=== PATIENT | female | born 2000 | race African-American/Black ===

== ENCOUNTER 2020-02-27 11:50 | Emergency (ER) | payer OTHER, SELFPAY ==
[2020-02-27 12:24] VITALS: BP 121/80; PULSE 78; RESP 18; TEMP 36.7; O2SAT 100; BMI 18.0
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
[2020-02-27 12:44] VITALS: BP 121/80; PULSE 78; RESP 18; TEMP 36.7; O2SAT 100
[2020-03-02 15:21] LABS: Neisseria gonorrhoeae, NAA Negative (Negative)
== END 2020-02-27 12:44 | disposition home or self-care (01) ==
PROVIDERS: Emergency Provider Nurse Practitioner Family
DX: Z20.2 Contact with and (suspected) exposure to infections with a predominantly sexual mode of transmission (principal)
CPT/HCPCS: 87491; 87591; 99201

== ENCOUNTER 2020-03-31 13:57 | Emergency (ER) | payer OTHER, SELFPAY ==
[2020-03-31 14:10] VITALS: BP 128/84; PULSE 87; RESP 19; TEMP 36.9; O2SAT 98; BMI 21.6
--- NOTE | 2020-03-31 14:24 | HMH.EDUTC ---
[facility] [place] Clinical Impression: Bronchitis Sinusitis Qualifiers: Sinusitis location: unspecified location Chronicity: unspecified Qualified Code(s): J32.9 - Chronic sinusitis, unspecified Disposition: Home, Self-Care Condition on Discharge: Good Instructions: Sinusitis, Sinus Headache, DI for Sinusitis, DI for Acute Bronchitis, Albuterol, Methylprednisolone, Amoxicillin and Clavulanic Acid Additional Instructions: ? Start antibiotic today. Be sure to complete entire prescription even if feeling better ? Monitor temp. Tylenol every 4 hours as needed and / or ibuprofen every 6 hours as needed ( As long as your primary care physician has told you that it ok to take both. For fever/aches/pains ER if no less than 101 despite Tylenol or Motrin ? Humidifier/vaporizer or hot steamy shower ? Inhaler every 4-6 hours as needed like we discussed. If unsure how to use it, ask pharmacist to demonstrate how. Should help open airways and improve cough, wheezing, and shortness of breath ? Mucinex during the day for your cough and cough suppressant only at night. Be sure to drink lots of water. Insurance may not cover a prescriptions for mucinex. Might be cheaper to get 400mg tablets and take 2 tablet in the morning, mid-day and evening with lots of water. *Start steroid today. Helps with inflammation therefore, cough and wheezing. Follow directions on the package. Reviewed side effects. Patient reports taking them before. Follow up IMMEDIATELY for new or worsening of symptoms OR no noticeable improvement over the next 48-72 hours. 911 immediately for any life threatening symptoms such as chest pain or difficulty breathing Prescriptions: Albuterol Sulfate [Proventil-HFA 90mcg/puff Inh] 1 - 2 puffs IH Q4HP PRN #1 inh PRN Reason: Shortness Of Breath Transmission Status: P[facility] to [facility] Amoxicillin/Potassium Clav [Augmentin 875-125 Tablet] 1 tab PO Q12H 7 Days #14 tab Transmission Status: Pending to [facility] methylPREDNISolone [Medrol 4mg tab] 4 mg PO DIRECTED #21 tab Transmission Status: Pending to [facility] Referrals: PCP,No [Primary Care Provider] - As needed Time of Disposition: 14:30 Medical Decision Making - Saúl Inquiry Pt receiving controlled substance: No Saúl was queried for this patient: No Vital Signs: 03/31/20 14:10 Temperature 98.4 F Temperature Source Oral Pulse Rate [Right Brachial] 87 Respiratory Rate 19 Blood Pressure [Right Arm] 128/84 Blood Pressure Mean [Right Arm] 98 Blood Pressure Source [Right Arm] Automatic Cuff Blood Pressure Position [Right Arm] Sitting 02 Sat by Pulse Oximetry 98 Oxygen Delivery Method Room Air [facility] [place] - General Stated complaint: Cough Time Seen by Provider: 03/31/20 14:24 Mode of Arrival: Ambulatory Source of Information: Patient Limitations: No Limitations Description of Symptoms (Recalled from Triage Doc. by RN): PATIENT C/O COUGH X 2 DAYS HEENT Symptoms (Recalled from RN notes): No Resp Symptoms (Recalled from RN notes): Yes Skin Symptoms (Recalled from RN notes): No MS Symptoms (Recalled from RN notes): No Functional Status (Recalled from RN notes): WNL - History of Present Illness Provider Complaint: Patient states that she is an everyday smoker States that she has been having sinus pain and pressure along with drainage in the back of her throat for over a week and cough that started about 2 days ago State that she has a history of recurrent sinus infections State that she feels like it is trying to move into her chest area State that she is blowing yellowish green mucous from her nose - Related Data Previous Rx's Medication Instructions Recorded Albuterol Sulfate [Proventil-HFA 1 - 2 puffs IH Q4HP PRN #1 inh 03/31/20 90mcg/puff Inh] Amoxicillin/Potassium Clav 1 tab PO Q12H 7 Days #14 tab 03/31/20 [Augmentin 875-125 Tablet] methylPREDNISolone [Medrol 4mg 4 mg PO DIRECTED #21 tab 03/31/20 ta
[2020-03-31 14:33] VITALS: BP 128/84; PULSE 87; RESP 19; TEMP 36.9; O2SAT 98
== END 2020-03-31 14:40 | disposition home or self-care (01) ==
PROVIDERS: Emergency Provider Nurse Practitioner
DX: J20.9 Acute bronchitis, unspecified (principal); J32.9 Chronic sinusitis, unspecified
CPT/HCPCS: 99201

== ENCOUNTER 2020-05-17 18:07 | Emergency (ER) | payer SELFPAY ==
[2020-05-17 18:08] VITALS: BP 127/62; PULSE 93; RESP 20; TEMP 36.9; O2SAT 100; BMI 17.7
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
[2020-05-17 18:43] VITALS: BP 116/73; PULSE 78; RESP 20; TEMP 36.9; O2SAT 99
== END 2020-05-17 18:44 | disposition home or self-care (01) ==
PROVIDERS: Emergency Provider Emergency Medicine
DX: Z04.1 Encounter for examination and observation following transport accident (principal); V89.2XXA Person injured in unspecified motor-vehicle accident, traffic, initial encounter; Y92.488 Other paved roadways as the place of occurrence of the external cause
CPT/HCPCS: 99281

== ENCOUNTER → 2020-07-09 10:37 | Outpatient (CLI) | payer OTHER, SELFPAY | PROVIDERS: Visit Provider Obstetrics & Gynecology | DX: Z34.90 Encounter for supervision of normal pregnancy, unspecified, unspecified trimester (principal) | CPT/HCPCS: 36415; 84702 ==

== ENCOUNTER → 2020-07-12 10:43 | Outpatient (CLI) | payer OTHER, SELFPAY | PROVIDERS: Visit Provider Obstetrics & Gynecology | DX: Z34.90 Encounter for supervision of normal pregnancy, unspecified, unspecified trimester (principal) | CPT/HCPCS: 36415; 84702 ==

== ENCOUNTER → 2020-07-15 14:28 | Outpatient (CLI) | payer OTHER, SELFPAY ==
--- NOTE | 2020-07-15 14:28 | US_ITS ---
PROCEDURE: US OB <= 14 WEEKS FETUS CLINICAL INDICATION: pregn COMPARISON: No exams were available for comparison FINDINGS: An intrauterine gestational sac is present with a pole with a crown-rump length of 2.31cm correlating to gestational age of 9weeks 1day. heart tones are present with an FHR of 174bpm. Yolk sac is noted. Is noted. Focal anechoic lesion is noted in the left ovary measuring 1.4 centimeters. IMPRESSION: Single viable intrauterine gestation with gestational age of 9 weeks and 1 day Estimated due date by Ultrasound is 02/16/2021 Dictated by: Christine Lindsay 07/15/2020 17:34 Christine Lindsay in OV 07/15/2020 17:34
== END ==
PROVIDERS: Visit Provider Obstetrics & Gynecology
DX: Z34.90 Encounter for supervision of normal pregnancy, unspecified, unspecified trimester (principal)
CPT/HCPCS: 76801

== ENCOUNTER → 2020-07-27 10:18 | Outpatient (CLI) | payer OTHER, SELFPAY ==
[2020-07-27 10:55] LABS: Basophils % 0.5 % (0.1-2.0); Eosinophils % 0.5 % (0.1-12.0); Hematocrit 38.3 % (37.0-47.0); Hemoglobin 12.6 g/dL (12.2-16.2); Lymphocytes # 1.4 K/mm3 (0.7-4.5); Lymphocytes % 23.6 % (10-50); Mean Corpuscular HGB Conc 32.8 g/dL (31.8-35.4); Mean Corpuscular Hemoglobin 27.4 pg (27.0-31.2); Mean Corpuscular Volume 83.4 fl (81-99); Mean Platelet Volume 8.9 fl (7.4-10.4); Monocytes # 0.2 K/mm3 (0.1-1.0); Monocytes % 2.9 % (1.7-9.3); Neutrophils # 4.4 K/mm3 (1.8-7.8); Neutrophils % 72.5 % (37.0-80.0); Platelet Count 243 K/mm3 (142-424); Red Blood Count 4.59 M/mm3 (4.20-5.40); White Blood Count 6.1 K/mm3 (4.5-13.0)
[2020-07-28 22:27] LABS: HIV Screen 4th Generation wRfx Non Reactive (Non Reactive); Hepatitis B Surface Antigen Negative (Negative); Hepatitis C Antibody <0.1 s/co ratio (0.0-0.9); Rapid Plasma Reagin Ab Titer Non Reactive (NonRea<1:1); Rubella Antibodies, IgG 1.89 index (Immune >0.99)
[2020-07-30 06:19] LABS: Neisseria gonorrhoeae, NAA Negative (Negative)
== END ==
PROVIDERS: Visit Provider Obstetrics & Gynecology
DX: Z34.90 Encounter for supervision of normal pregnancy, unspecified, unspecified trimester (principal)
CPT/HCPCS: 36415; 85025; 86592; 86703; 86762; 86850; 87340; 87380; 87491; 87591; G0432

== ENCOUNTER 2020-09-03 11:25 | Emergency (ER) | payer OTHER, SELFPAY ==
[2020-09-03 11:26] VITALS: BP 103/74; PULSE 79; RESP 18; TEMP 36.6; O2SAT 98; BMI 20.5
[2020-09-03 11:47] LABS: Basophils % 0.3 % (0.1-2.0); Eosinophils % 0.2 % (0.1-12.0); Hematocrit 37.1 % (37.0-47.0); Hemoglobin 12.4 g/dL (12.2-16.2); Lymphocytes # 1.5 K/mm3 (0.7-4.5); Lymphocytes % 18.6 % (10-50); Mean Corpuscular HGB Conc 33.4 g/dL (31.8-35.4); Mean Corpuscular Hemoglobin 27.5 pg (27.0-31.2); Mean Corpuscular Volume 82.4 fl (81-99); Mean Platelet Volume 10.4 fl (7.4-10.4); Monocytes # 0.3 K/mm3 (0.1-1.0); Monocytes % 3.1 % (1.7-9.3); Neutrophils # 6.3 K/mm3 (1.8-7.8); Neutrophils % 77.9 % (37.0-80.0); Platelet Count 205 K/mm3 (142-424); Red Cell Distribution Width 13.3 % (11.5-17.5); White Blood Count 8.1 K/mm3 (4.5-13.0)
[2020-09-03 11:48] LABS: Chloride 105 mmol/L (98-107); Potassium 4.3 mmoL/L (3.5-5.1); Sodium 137 mmol/L (136-145)
--- NOTE | 2020-09-03 11:50 | HMH.EDGENADL ---
ED Disposition Clinical Impression: Morning sickness Disposition: Home, Self-Care Condition on Discharge: Good Instructions: DI for Diarrhea and Traveler's Diarrhea -- Adult, DI for Diarrhea and Traveler's Diarrhea -- Child, DI for Nausea -- Adult, DI for Nausea -- Child Referrals: Provider,Referral, [Primary Care Provider] - - Critical Care Critical Care Time: No Attestation: On 09/03/20, the high probability of a clinically significant, sudden or life threatening deterioration of the following system(s) required my full and direct attention, intervention and personal management. The time I documented below is in addition to time spent performing reported procedures but includes the following listed in this critical care notation. Medical Decision Making - Medical Records Medical records reviewed: Yes: I reviewed the patient's medical records. - Saúl Inquiry Pt receiving controlled substance: No Vital Signs: 09/03/20 11:26 Temperature 97.9 F Temperature Source Oral Pulse Rate [Right] 79 Respiratory Rate 18 Blood Pressure [Right Arm] 103/74 L Blood Pressure Mean [Right Arm] 83 02 Sat by Pulse Oximetry 98 Oxygen Delivery Method Room Air - Lab Data Lab Results 09/03/20 11:36: WBC 8.1, RBC 4.50, Hgb 12.4, Hct 37.1, MCV 82.4, MCH 27.5, MCHC 33.4, RDW 13.3, Plt Count 205, MPV 10.4, Neut % (Auto) 77.9, Lymph % (Auto) 18.6, [place] % (Auto) 3.1, Eos % (Auto) 0.2, Baso % (Auto) 0.3, Neut # (Auto) 6.3, Lymph # (Auto) 1.5, [place] # (Auto) 0.3, Eos # (Auto) 0.0, Baso # (Auto) 0.0 09/03/20 11:36: Sodium 137, Potassium 4.3, Chloride 105, Carbon Dioxide 23, Anion Gap 13.3, BUN 5 L, Creatinine 0.60, Estimated Creat Clear 140, Estimated GFR 127, Est GFR ( Amer) 154, Glucose 86, Calcium 10.0, Total Bilirubin 0.5, AST 25, ALT 14, Alkaline Phosphatase 54, Total Protein 8.0, Albumin 4.8, Globulin 3.2, Albumin/Globulin Ratio 1.5 Result diagrams: 09/03/20 11:36 09/03/20 11:36 Orders (Tests/Meds): ED MEDICATIONS Discontinued Medications Generic Name Dose Route Start Last Admin Trade Name Mirna PRN Reason Stop Dose Admin Diphenhydramine HCl 25 mg 09/03/20 11:48 09/03/20 11:52 Diphenhydramine 50mg/Ml Vial IV 09/03/20 11:49 25 mg ONCE ONE Administration Doxylamine Succinate/Pyridoxine 1 tab 09/03/20 12:00 09/03/20 12:58 Doxylamine 10mg/Pyridoxine 10mg Tablet PO 09/03/20 12:01 1 tab ONCE ONE Administration Sodium Chloride 1,000 mls @ 999 mls/hr 09/03/20 12:00 09/03/20 12:02 Sod Chlor 0.9% 1000ml Bag IV 09/03/20 13:00 999 mls/hr .Q1H1M ZAIRA Administration Metoclopramide HCl 10 mg 09/03/20 11:48 09/03/20 11:52 Metoclopramide Hcl 10mg/2ml Vial IVP 09/03/20 11:49 10 mg ONCE ONE Administration Medical Decision Narrative: 20-year-old female presents with intractable nausea and vomiting. She is 16 weeks per dates and ultrasound. Vital signs are normal she is not in significant distress and does not have acute abdomen on exam. Plan to give Reglan and Benadryl and IV fluids obtain electrolytes and reassess No significant evidence of dehydration or ketosis. Bedside ultrasound reveals IUP with heart rate visualized. After IV antiemetics she is feeling better and requesting be discharged. Plan to discharge with return precautions follow-up with OB General Adult HPI - General Chief complaint: Nausea/Vomiting/Diarrhea Stated complaint: 16 wks, vomiting Time Seen by Provider: 09/03/20 11:45 Mode of Arrival: Family Vehicle Limitations: No Limitations Description of Symptoms (Recalled from ER Triage Doc. by RN): PATIENT C/O N/V SINCE YESTERDAY. PT REPORTS SHE IS 16 WEEKS . PT REPORTS SHE HAS HAD A OF N/V THIS ENTIRE BUT WORSE THE LAST 24 HOURS. PT REPORTS SHE TAKES PHENERGAN AND ZOFRAN DAILY. PT DENIES ANY ABDOMINAL PAIN. - History of Present Illness HPI narrative: 20-year-old female, 16 weeks per report presents with in
[2020-09-03 11:51] LABS: Alanine Aminotransferase 14 U/L (12-78); Albumin Level 4.8 g/dl (3.5-5.0); Albumin/Globulin Ratio 1.5 (1.1-1.8); Alkaline Phosphatase 54 U/L (38-126); Anion Gap 13.3 mEq/L (5-15); Aspartate Amino Transferase 25 U/L (14-36); Bilirubin,Total 0.5 mg/dl (0.2-1.3); Blood Urea Nitrogen 5 mg/dl (7-17); Carbon Dioxide 23 mmol/L (22.0-30.0); Creatinine Clearance Estimated 140 mL/min (50-200); Estimated Glomerular Filt Rate 127 ml/min (>60); GFR (African American) 154 ML/MIN (>60); Globulin 3.2 g/dL (1.3-3.2)
[2020-09-03 11:52] LABS: Glucose 86 mg/dl (74-100)
[2020-09-03 12:00] VITALS: BP 108/68; PULSE 63; O2SAT 100
[2020-09-03 12:30] VITALS: BP 104/61; PULSE 66
[2020-09-03 13:00] VITALS: BP 106/71; BP 97/67; PULSE 74; PULSE 76; RESP 18; TEMP 36.7; O2SAT 98
[2020-09-03 13:18] VITALS: BP 96/55; PULSE 70
== END 2020-09-03 13:40 | disposition home or self-care (01) ==
PROVIDERS: Emergency Provider Emergency Medicine
DX: O21.0 Mild hyperemesis gravidarum (principal); Z3A.16 16 weeks gestation of pregnancy
CPT/HCPCS: 80053; 85025; 96374; 99282

== ENCOUNTER → 2020-10-06 10:13 | Outpatient (CLI) | payer OTHER, SELFPAY ==
--- NOTE | 2020-10-06 10:19 | US_ITS ---
PROCEDURE: US OB >= 14 WEEKS FETUS CLINICAL INDICATION: OB complete COMPARISON: US US OB <= 14 WEEKS FETUS from 07/15/2020 FINDINGS: There is a single live intrauterine gestation with an average ultrasound age of 21 weeks 1 day. heart and body motion noted. The placenta is anterior and grade 1. There is breech presentation. . Complete survey performed and was unremarkable on the submitted images as in PACS. No discrete anomalies identified on survey imaging by technologist. Active fetus. Three-vessel cord with satisfactory umbilical cord insertion. 4- chamber heart noted. Survey of brain & ventricles Unremarkable. Face and neck survey unremarkable. Diaphragm and chest views unremarkable. Abdomen: Both kidneys noted and unremarkable. Stomach noted and satisfactory. Spine: Survey of the spine satisfactory with no anomalies identified nor imaged. Both arms and legs noted. Amniotic Fluid: Adequate. Maternal adnexa: No significant findings. Measurements: Average ultrasound age 21weeks 1day. Gestational Age 21weeks Estimated due date by ultrasound age 1102/15/2021. Estimated weight 415g BPD = 20weeks 5days OFD = 21weeks 5days HC = 20weeks 4days AC = 21weeks FL = 22weeks 1day Growth Percentile= 62Percent% Heart Rate = 165bpm Cerebellum = 20weeks 5days Humerus = 22weeks 5days HC/AC is 1.14 CI is 0.74 FL/BPD is 0.78 FL/AC is 0.24 IMPRESSION: Live IUP in breech presentation with an average ultrasound age of 21 weeks 1 day. No obvious anomalies. Please see above for detail Dictated by: Jose Lius Ulloa MD 10/08/2020 05:19 Jose Luis Ulloa MD in OV 10/08/2020 05:19
== END ==
PROVIDERS: Visit Provider Obstetrics & Gynecology
DX: Z34.90 Encounter for supervision of normal pregnancy, unspecified, unspecified trimester (principal)
CPT/HCPCS: 76805

== ENCOUNTER 2020-11-25 11:41 | Outpatient (CLI) | payer OTHER, SELFPAY ==
[2020-11-25 12:38] VITALS: BMI 21.7
[2020-11-25 13:10] LABS: Microscopic, Urine URINE MICROSCOPIC (MICROSCOPIC)
[2020-11-25 13:10] LABS: Coronavirus 19, PCR Not Detected (NotDetected); Influenza A, PCR Not Detected (NotDetected); Influenza B, PCR Not Detected (NotDetected)
[2020-11-25 13:13] LABS: Basophils % 0.3 % (0.1-2.0); Eosinophils % 0.3 % (0.1-12.0); Hematocrit 34.1 % (37.0-47.0); Hemoglobin 11.2 g/dL (12.2-16.2); Lymphocytes # 1.6 K/mm3 (0.7-4.5); Lymphocytes % 17.7 % (10-50); Mean Corpuscular Hemoglobin 27.1 pg (27.0-31.2); Mean Corpuscular Volume 82.2 fl (81-99); Mean Platelet Volume 9.9 fl (7.4-10.4); Monocytes # 0.4 K/mm3 (0.1-1.0); Monocytes % 4.6 % (1.7-9.3); Neutrophils % 77.1 % (37.0-80.0); Platelet Count 223 K/mm3 (142-424); Red Blood Count 4.15 M/mm3 (4.20-5.40); Red Cell Distribution Width 13.5 % (11.5-17.5)
[2020-11-25 13:14] LABS: Appearance,Urine CLEAR (Clear); Bilirubin,Urine Negative (Negative); Blood, Urine Negative (Negative); Color,Urine YELLOW (Yellow); Glucose,Urine (UA) Negative (Negative); Ketones,Urine 3+ (Negative); Leukocyte Esterase,Urine 2+ (Negative); Nitrate,Urine Negative (Negative); Protein,Urine TRACE (Negative); Specific Gravity, Urine 1.015 (1.005-1.030); Urobilinogen,Urine 0.2 EU/dl (0.2)
[2020-11-25 13:15] LABS: PH,Urine >= 9.0 (5.0-8.5)
[2020-11-25 13:16] VITALS: BP 131/84; PULSE 89; RESP 16; TEMP 37.2; O2SAT 100; BMI 21.7
[2020-11-25 13:18] LABS: Chloride 106 mmol/L (98-107); Sodium 140 mmol/L (136-145)
[2020-11-25 13:19] LABS: Potassium 3.4 mmoL/L (3.5-5.1)
[2020-11-25 13:21] LABS: Alanine Aminotransferase 16 U/L (12-78); Alkaline Phosphatase 108 U/L (38-126); Anion Gap 14.4 mEq/L (5-15); Aspartate Amino Transferase 27 U/L (14-36); Bilirubin,Total 0.5 mg/dl (0.2-1.3); Blood Urea Nitrogen 3 mg/dl (7-17); Carbon Dioxide 23 mmol/L (22.0-30.0); Creatinine Clearance Estimated 149 mL/min (50-200); Estimated Glomerular Filt Rate 127 ml/min (>60); GFR (African American) 154 ML/MIN (>60)
[2020-11-25 13:22] LABS: Albumin Level 4.5 g/dl (3.5-5.0); Albumin/Globulin Ratio 1.4 (1.1-1.8); Globulin 3.3 g/dL (1.3-3.2); Glucose 81 mg/dl (74-100); Total Protein,Serum 7.8 g/dl (6.3-8.2)
[2020-11-25 13:25] LABS: Benzodiazepines Screen,Urine Negative ng/ml (<200)
[2020-11-25 13:26] LABS: Amphetamine/Metha Screen,Urine Negative ng/ml (<1000); Barbiturates Screen,Urine Negative ng/ml (<200)
[2020-11-25 13:27] LABS: Cannabinoid Screen,Urine Positive ng/ml (<50)
[2020-11-25 13:28] LABS: Cocaine Screen,Urine Negative ng/ml (<300); Methadone Screen,Urine Negative ng/ml (<300)
[2020-11-25 13:29] LABS: Opiate Screen,Urine Negative ng/ml (<300)
[2020-11-25 13:30] LABS: Phencyclidine Screen,Urine Negative ng/ml (<25)
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
== END 2020-11-25 15:05 | disposition home or self-care (01) ==
LOC: OBOUT 11:42 → OB 11:43
PROVIDERS: Visit Provider Obstetrics & Gynecology
DX: O21.9 Vomiting of pregnancy, unspecified (principal); Z3A.28 28 weeks gestation of pregnancy
CPT/HCPCS: 59025; 80053; 80305; 81001; 85025; 87086; 96365; 96366; 96367; G0463; U0003

== ENCOUNTER → 2021-01-13 16:12 | Outpatient (CLI) | payer OTHER, SELFPAY | PROVIDERS: Visit Provider Obstetrics & Gynecology | DX: Z34.90 Encounter for supervision of normal pregnancy, unspecified, unspecified trimester (principal) | CPT/HCPCS: 86403 ==

== ENCOUNTER 2021-02-04 10:00 | Inpatient (IN) | payer OTHER, SELFPAY ==
[2021-02-04 09:53] VITALS: BMI 24.7
[2021-02-04 10:25] LABS: Microscopic, Urine URINE MICROSCOPIC (MICROSCOPIC)
[2021-02-04 10:30] LABS: Appearance,Urine SL CLOUDY (Clear); Blood, Urine 1+ (Negative); Color,Urine YELLOW (Yellow); Glucose,Urine (UA) Negative (Negative); Ketones,Urine Negative (Negative); Leukocyte Esterase,Urine 2+ (Negative); Nitrate,Urine Negative (Negative); PH,Urine 7.5 (5.0-8.5); Protein,Urine TRACE (Negative); Specific Gravity, Urine 1.015 (1.005-1.030)
[2021-02-04 10:34] LABS: Bilirubin,Urine 1+ (Negative)
[2021-02-04 10:38] LABS: Benzodiazepines Screen,Urine Negative ng/ml (<200); RBC,Urine Occasional #/hpf (0-3)
[2021-02-04 10:39] LABS: Amphetamine/Metha Screen,Urine Negative ng/ml (<1000); Bacteria,Urine Trace /lpf; Barbiturates Screen,Urine Negative ng/ml (<200)
[2021-02-04 10:40] LABS: Cocaine Screen,Urine Negative ng/ml (<300)
[2021-02-04 10:41] LABS: Cannabinoid Screen,Urine Positive ng/ml (<50); Methadone Screen,Urine Negative ng/ml (<300)
[2021-02-04 10:42] LABS: Opiate Screen,Urine Negative ng/ml (<300); Phencyclidine Screen,Urine Negative ng/ml (<25)
[2021-02-04 10:59] LABS: Coronavirus 19, PCR Not Detected (NotDetected); Influenza A, PCR Not Detected (NotDetected); Influenza B, PCR Not Detected (NotDetected)
[2021-02-04 11:01] LABS: Basophils % 0.8 % (0.1-2.0); Eosinophils % 0.2 % (0.1-12.0); Hemoglobin 9.6 g/dL (12.2-16.2); Lymphocytes # 1.1 K/mm3 (0.7-4.5); Lymphocytes % 22.4 % (10-50); Mean Corpuscular Hemoglobin 25.8 pg (27.0-31.2); Mean Corpuscular Volume 83.1 fl (81-99); Monocytes # 0.3 K/mm3 (0.1-1.0); Monocytes % 5.3 % (1.7-9.3); Neutrophils # 3.5 K/mm3 (1.8-7.8); Neutrophils % 71.3 % (37.0-80.0); Platelet Count 224 K/mm3 (142-424); Red Blood Count 3.73 M/mm3 (4.20-5.40); White Blood Count 4.9 K/mm3 (4.5-13.0)
[2021-02-04 11:54] VITALS: BMI 24.1
--- NOTE | 2021-02-04 12:56 | HMH.HP ---
*Admission Date: 02/04/21 *Chief complaint: contractions *History of present illness: 20 alyse `@ 38 05/23 presented in active labor Regular contractions q 2-4 minutes; cervix 4cm dilated Admitted for labor with reassuring status complicated by +chlamydia in first trimester, anemia and marijuana abuse Hgb today 9.6 [facility] History I have reviewed the patient's past medical history: Yes *Have you ever received a pneumonia vaccine?: No *Have you received a flu vaccine this season?: No Other Surgeries: No: Amputation: No Fractures: No - *Social History Smoking Status: Never smoker Alcohol Intake: never Substance Use Type: denies use *Occupational Status:: unemployed *Travel in the last 8 weeks: None Family Hx:: Unable to obtain : 2 Para: 0 Review of Systems - Review of Systems Review of systems:: pertinent systems reviewed and negative unless documented below - *Genitourinary Denies abnormal vaginal bleeding Meds Home Medications Medication Instructions Recorded Confirmed Type vit no.95-ferrous 1 tab PO DAILY 07/27/20 02/04/21 History fumarate 28 mg-folic acid 800 mcg tablet metoclopramide HCl 10 mg tablet 10 mg PO Q8H PRN #30 tab 08/24/20 02/04/21 Rx ondansetron 4 mg disintegrating 4 mg PO Q4H PRN #30 tab 11/25/20 02/04/21 Rx tablet promethazine 12.5 mg tablet 12.5 mg PO Q6H PRN #30 tab 11/25/20 02/04/21 Rx sertraline 50 mg tablet 50 mg PO DAILY #90 tab 11/25/20 02/04/21 Rx nitrofurantoin 100 mg PO BID 7 Days #14 cap 01/13/21 02/04/21 Rx monohydrate/macrocrystals 100 mg capsule Allergies Allergy/AdvReac Type Severity Reaction Status Date / Time No Known Allergies Allergy Verified 02/04/21 09:14 Exam Vital signs and Labs for Last 24 Hours: Laboratory Results - last 24 hr 02/04/21 09:51: Urine Color Yellow, Urine Appearance Sl cloudy, Urine pH 7.5, Ur Specific [place]er 1.015, Urine Protein Trace, Urine Glucose (UA) Negative, Urine Ketones Negative, Urine Blood 1+, Urine Nitrate Negative, Urine Bilirubin 1+ A, Urine Urobilinogen 1.0, Ur Leukocyte Esterase 2+ A, Urine RBC Occasional, Urine WBC 5-10, Ur Squamous Epith Cells 3-5, Urine Bacteria Trace 02/04/21 09:51: Urine Opiates Screen Negative, Urine Methadone Screen Negative, Ur Barbituates Screen Negative, Ur Phencyclidine Scrn Negative, Ur Amphetamines Screen Negative, U Benzodiazepines Scrn Negative, Urine Cocaine Screen Negative, U Marijuana (THC) Screen Positive H 02/04/21 10:30: WBC 4.9, RBC 3.73 L, Hgb 9.6 L, Hct 31.0 L, MCV 83.1, MCH 25.8 L, MCHC 31.0 L, RDW 16.0, Plt Count 224, MPV 11.0 H, Neut % (Auto) 71.3, Lymph % (Auto) 22.4, [place] % (Auto) 5.3, Eos % (Auto) 0.2, Baso % (Auto) 0.8, Neut # (Auto) 3.5, Lymph # (Auto) 1.1, [place] # (Auto) 0.3, Eos # (Auto) 0.0, Baso # (Auto) 0.0 02/04/21 10:30: Blood Type O Positive, Antibody Screen Negative 02/04/21 10:39: SARS-CoV-2 (PCR) Not detected, Influenza A Untype (PCR) Not detected, Influenza Type B (PCR) Not detected I & O for Last 24 hours: Intake & Output 02/02/21 02/03/21 02/04/21 02/05/21 11:59 11:59 11:59 11:59 Weight 154 lb - Constitutional no acute distress - *Routine HEENT Exam Head: Present: normocephalic Eye: Absent: conjunctival icterus ENT: Present: mucous membranes moist - *Routine Neck Exam Present: supple. Absent: lymphadenopathy - *Routine Respiratory Exam Present: CTA bilaterally - *Routine Cardiovascular Exam Present: RRR - *Routine Abdominal Exam Present: soft, normoactive bowel sounds. Absent: tenderness - *Routine Rectal Exam Rectal:: deferred - *Routine Genitalia Exam Genitalia:: normal female Comment:: cervix 4/80 - *Routine Extremities Exam Absent: cyanosis, clubbing, edema - *Routine Skin Exam Present: warm. Absent: rash - *Routine Neurological Exam Present: alert, oriented X3 Assessment and Plan (1) 38 weeks gestation of Status: Acute Category: Medical
--- NOTE | 2021-02-04 14:04 | SW/DCPLANNER ---
Addendum entered by Wanda Aguiar 02/07/21 10:44: I have informed Sheryl JOHNSON regarding referral for this patient. Original Note: I received a referral for this patient regarding: THC positive x2. This patient has not delivered at this time but is expected to deliver today 02/04/21. Patient has stated this will be her first child (Julieta Mccall). Infants father (Surekha Mccall 10/06/98) was present at the time of my visit. Patient, Surekha and will reside at [address] [place] [address]. Patients contact number [phone]. Patient is interested in [facility] services and has completed paperwork. Patient has also expressed an interest in HANDS program: has requested additional information for HANDS provider. I will follow up w/ E Hany JOHNSON on Sunday. Patient did have two positive THC urine drug screen on 11/25/20 and 02/04/21: patient explained that THC was used due to illness/ unable to eat and unable to sleep. I will follow up with OB staff at delivery/Sunday regarding this patient.
--- NOTE | 2021-02-04 14:06 | HMH.PHAINT ---
MEDICATION RECONCILIATION COMPLETED ON PATIENT USING EXTERNAL FILL HISTORY FROM PHARMACY. -LUKE GRANT, DARRYLD
--- NOTE | 2021-02-04 14:33 | P.PN_ITS ---
[facility] Anesthesia Checklist - Patient Identification Patient Identification: Arm Band, Verbal (Name & ) - Structural Data Admitted From: Home Planned Operative Procedure/s: HAMLET Consent for Planned Operative Procedure(s) Verified: Yes Verified Documents: Surgical Consent - NPO Status Verified Time NPO: 00:00 - Chart Verification Results Verified: CBC - Anesthesia Plan Anesthesia Risk discussed: Yes ASA Class: II Anesthesia Type: Epidural [facility] History *Have you ever received a pneumonia vaccine?: No *Have you received a flu vaccine this season?: No Anesthesia experience/problems:: no issues Other Surgeries: No: Amputation: No Fractures: No - *Social History Smoking Status: Never smoker Alcohol Intake: never Substance Use Type: denies use *Occupational Status:: unemployed *Travel in the last 8 weeks: None Family Hx:: Unable to obtain Para: 0
--- NOTE | 2021-02-04 17:05 | HMH.DN ---
- Delivery Note Delivery Date:: 02/04/21 Delivery Time:: 16:09 Anesthesia Type: Epidural Was labor medically induced?: No Infant delivered prior to 39 weeks?: Yes Justification for early elective delivery:: Active Labor Infant Gender: Female at 1 minute: 7 at 5 minutes: 8 Delivery Procedure:: Spontaneous vaginal delivery of liveborn female over intact perineum. Delivery uncomplicated Loose nuchal cord x 1 reduced on perineum; no shoulder dystocia with delivery Infant taken to warmer immediately after umbilical cord clamped/cut, with standard nursing assessment performed Infant Apgars: 7 & 8 Placenta spontaneously expressed and examined; noted to be complete/intact. Vulva, vagina, and cervix inspected; second degree perineal laceration repaired wtih 2-0 vicryl EBL: 300 cc All sponge/needle/instrument counts correct at conclusion of procedure Disposition: Mom/baby stable to recovery in [facility] Laceration:: vaginal Placental Delivery Description: Spontaneous
[2021-02-04 19:13] VITALS: BP 128/93; PULSE 84; RESP 18; TEMP 36.8
[2021-02-05 00:29] VITALS: BP 155/90; PULSE 81; RESP 18; TEMP 36.9
[2021-02-05 04:24] VITALS: BP 130/85; PULSE 90; RESP 18; TEMP 36.9
[2021-02-05 06:29] LABS: Hematocrit 26.4 % (37.0-47.0); Hemoglobin 7.8 g/dL (12.2-16.2)
[2021-02-05 06:48] LABS: Chloride 105 mmol/L (98-107); Potassium 3.4 mmoL/L (3.5-5.1); Sodium 137 mmol/L (136-145)
[2021-02-05 06:51] LABS: Alanine Aminotransferase 13 U/L (12-78); Albumin Level 2.5 g/dl (3.5-5.0); Albumin/Globulin Ratio 1.1 (1.1-1.8); Alkaline Phosphatase 110 U/L (38-126); Anion Gap 9.4 mEq/L (5-15); Aspartate Amino Transferase 42 U/L (14-36); Bilirubin,Total 0.2 mg/dl (0.2-1.3); Blood Urea Nitrogen 3 mg/dl (7-17); Carbon Dioxide 26 mmol/L (22.0-30.0); Creatinine Clearance Estimated 198 mL/min (50-200); Estimated Glomerular Filt Rate 157 ml/min (>60); GFR (African American) 190 ML/MIN (>60); Globulin 2.3 g/dL (1.3-3.2); Glucose 78 mg/dl (74-100); Total Protein,Serum 4.8 g/dl (6.3-8.2)
[2021-02-05 06:52] LABS: Calcium 8.3 mg/dl (8.4-10.2)
--- NOTE | 2021-02-05 08:44 | HMH.ACPN2 ---
Internal Medicine - PN: Subj *Date: 02/05/21 *Time: 08:45 Interval history: PPD #1 no unusual complaints BP elevated immediately and started on labetalol 200 BID Overnight and this morning, bp improved lochia appropriate and patient is asymptomatic with [id number] anemia hgb at admission 9.6 and PPD 1 7.8 Exam Vital signs and Labs for Last 24 Hours: Temp Pulse Resp BP 98.5 F 90 18 130/85 02/05/21 04:24 02/05/21 04:24 02/05/21 04:24 02/05/21 04:24 Laboratory Results - last 24 hr 02/04/21 09:51: Urine Color Yellow, Urine Appearance Sl cloudy, Urine pH 7.5, Ur Specific [place] 1.015, Urine Protein Trace, Urine Glucose (UA) Negative, Urine Ketones Negative, Urine Blood 1+, Urine Nitrate Negative, Urine Bilirubin 1+ A, Urine Urobilinogen 1.0, Ur Leukocyte Esterase 2+ A, Urine RBC Occasional, Urine WBC 5-10, Ur Squamous Epith Cells 3-5, Urine Bacteria Trace 02/04/21 09:51: Urine Opiates Screen Negative, Urine Methadone Screen Negative, Ur Barbituates Screen Negative, Ur Phencyclidine Scrn Negative, Ur Amphetamines Screen Negative, U Benzodiazepines Scrn Negative, Urine Cocaine Screen Negative, U Marijuana (THC) Screen Positive H 02/04/21 10:30: WBC 4.9, RBC 3.73 L, Hgb 9.6 L, Hct 31.0 L, MCV 83.1, MCH 25.8 L, MCHC 31.0 L, RDW 16.0, Plt Count 224, MPV 11.0 H, Neut % (Auto) 71.3, Lymph % (Auto) 22.4, Bates % (Auto) 5.3, Eos % (Auto) 0.2, Baso % (Auto) 0.8, Neut # (Auto) 3.5, Lymph # (Auto) 1.1, Bates # (Auto) 0.3, Eos # (Auto) 0.0, Baso # (Auto) 0.0 02/04/21 10:30: Blood Type O Positive, Antibody Screen Negative 02/04/21 10:39: SARS-CoV-2 (PCR) Not detected, Influenza A Untype (PCR) Not detected, Influenza Type B (PCR) Not detected 02/05/21 04:59: Hgb 7.8 L D, Hct 26.4 L 02/05/21 04:59: Sodium 137, Potassium 3.4 L, Chloride 105, Carbon Dioxide 26, Anion Gap 9.4, BUN 3 L, Creatinine 0.50 L, Estimated Creat Clear 198, Estimated GFR 157, Est GFR ( Amer) 190, Glucose 78, Calcium 8.3 L, Total Bilirubin 0.2, AST 42 H, ALT 13, Alkaline Phosphatase 110, Total Protein 4.8 L D, Albumin 2.5 L, Globulin 2.3, Albumin/Globulin Ratio 1.1 I & O for Last 24 hours: Intake & Output 02/02/21 02/03/21 02/04/21 02/05/21 11:59 11:59 11:59 11:59 Weight 154 lb Narrative: CONSTITUTIONAL: no acute distress HEENT: mucous membranes moist PULMONARY: breathing unlabored without audible wheezes CV: no tachycardia or visible JVD; normal LE peripheral pulses ABD: soft, NT/ND, no guarding : fundus firm at/below umbilicus SKIN: no visible rash or lesions EXT: 1+ edema LEs NEURO: alert/oriented, no altered mental status PSYCH: appropriate mood and demeanor without visible anxiety/depression Assessment and Plan (1) 38 weeks gestation of Status: Acute Category: Medical Code(s): Z3A.38 - 38 weeks gestation of (2) Active labor at term Status: Acute Category: Medical (3) Positive urine drug screen Problem details: THC Status: Acute Category: Medical Code(s): R82.5 - Elevated urine levels of drugs, medicaments and biological substances (4) Anemia complicating Status: Acute Category: Medical Code(s): O99.019 - Anemia complicating , unspecified trimester (5) History of chlamydia infection Problem details: 02/2020 Status: Acute Category: Medical Code(s): Z86.19 - Personal history of other infectious and parasitic diseases (6) Vaginal delivery Status: Acute Category: Medical Code(s): O80 - Encounter for full-term uncomplicated delivery (7) PIH ( induced hypertension) Status: Acute Category: Medical Code(s): O13.9 - Gestational [-induced] hypertension without significant proteinuria, unspecified trimester - Assessment and plan all Dx Assessment and Plan for all problems:: Routine care continue labetalol 200 BID FeSO4 for anemia
[2021-02-05 20:00] VITALS: BP 141/97; PULSE 90; RESP 18; TEMP 37.2; O2SAT 100
[2021-02-05 21:15] VITALS: BP 142/89
[2021-02-06 03:30] VITALS: BP 130/97; PULSE 75; RESP 18; TEMP 36.8; O2SAT 100
--- NOTE | 2021-02-06 10:46 | HMH.OBDCSM ---
General - General Admission date:: 02/04/21 Discharge date: 02/06/21 HPI - History of Present Illness History of present illness: She is a 20-year-old 2 para 0 aborta 1 who is 38 and 2 weeks gestational age. She was seen in the office on the day of delivery and was found to be in active labor at 4 cm dilated. Hospital Course Hospital Course: She progressed to full dilation under labor epidural and delivered a liveborn female child at 1609 on the afternoon of February 04, 2021. The baby weighed 7 pounds 7 ounces and was 20-1/2 inches long. She had Apgars of 7 at 1 minute and 8 at 5 minutes. The perineum was intact. She is breast-feeding. While she was in hospital her blood pressure was elevated and she was started on labetalol. She will continue this at home. She has done well and has remained afebrile throughout her hospitalization. She is eating and drinking and ambulating. She is breast-feeding. Her platform worker is Dr. Liang. She has O+ blood, she is rubella immune and was group B streptococcus negative. She is discharged home to follow-up with Dr. Vidal in approximately 2 weeks time. She will continue with her vitamins and iron. She was given the usual instructions with respect to limiting her activity, driving and sexual activity. Her condition on discharge is stable improved. Rhogam Administration: Not Indicated Objective Vital signs: Temp Pulse Resp BP Pulse Ox 98.3 F 75 18 130/97 H 100 02/06/21 03:30 02/06/21 03:30 02/06/21 03:30 02/06/21 03:30 02/06/21 03:30 no acute distress - *Routine HEENT Exam Head: Present: normocephalic Eye: Present: EOMI, PERRL ENT: Present: mucous membranes moist Results Labs on day of discharge: Preliminary micro results at discharge 02/04/21 09:51 Urine Culture - Preliminary Urine,Clean Catch DS: Diagnosis - Discharge Diagnosis (1) 38 weeks gestation of Status: Acute (2) Active labor at term Status: Acute (3) Positive urine drug screen Status: Acute Problem details: THC (4) Anemia complicating Status: Acute (5) History of chlamydia infection Status: Acute Problem details: 02/2020 (6) Vaginal delivery Status: Acute (7) PIH ( induced hypertension) Status: Acute Discharge Plan - Patient Discharge Instructions ACTIVITY: No heavy lifting DIET: continue same diet - Follow up Plan Disposition: Home, Self-Care Condition at discharge:: Stable Home Medications: Home Medications Medication Instructions Recorded Confirmed Type vit no.95-ferrous 1 tab PO DAILY 07/27/20 02/04/21 History fumarate 28 mg-folic acid 800 mcg tablet Metoclopramide HCl [Metoclopramide 10 mg PO Q8HP PRN 02/04/21 02/04/21 History 10mg Tablet] Ondansetron [Zofran 4mg ODT] 4 mg PO Q4HP PRN 02/04/21 02/04/21 History Promethazine HCl 12.5 mg PO Q6HP PRN 02/04/21 02/04/21 History Sertraline HCl [Zoloft] 50 mg PO DAILY 02/04/21 02/04/21 History Labetalol HCl [Normodyne 100mg 200 mg PO BID #60 tab 02/06/21 Rx tablet] Prescriptions/Medication Reconciliation: New Labetalol HCl [Normodyne 100mg tablet] 200 mg PO BID #60 tab Continued vit no.95-ferrous fumarate 28 mg-folic acid 800 mcg tablet 1 tab PO DAILY Sertraline HCl [Zoloft] 50 mg PO DAILY Metoclopramide HCl [Metoclopramide 10mg Tablet] 10 mg PO Q8HP PRN PRN Reason: nausea and vomiting Ondansetron [Zofran 4mg ODT] 4 mg PO Q4HP PRN PRN Reason: nausea and vomiting Promethazine HCl 12.5 mg PO Q6HP PRN PRN Reason: nausea and vomiting - Problem Reconciliation Problems Reviewed?: Yes
== END 2021-02-06 11:30 | disposition home or self-care (01) | DRG 806 ==
LOC: OBOUT 10:00 → OB 10:00
PROVIDERS: Admitting Provider Obstetrics & Gynecology; Visit Provider Obstetrics & Gynecology
DX: O70.1 Second degree perineal laceration during delivery (principal); O98.811 Other maternal infectious and parasitic diseases complicating pregnancy, first trimester; Z37.0 Single live birth; Z3A.38 38 weeks gestation of pregnancy; O69.81X0 Labor and delivery complicated by cord around neck, without compression, not applicable or unspecified; O13.5 Gestational [pregnancy-induced] hypertension without significant proteinuria, complicating the puerperium; O99.03 Anemia complicating the puerperium; D64.89 Other specified anemias
CPT/HCPCS: 59409; 36415; 59025; 80053; 80305; 81001; 85014; 85018; 85025; 86850; 87086; 94761; C1758; C9803; G0283; J0595; U0003; U0005